=== PATIENT | female | born 1985 | race Caucasian/White ===

== ENCOUNTER 2017-03-07 11:13 | Inpatient (IN) | payer MEDICAID, OTHER ==
[~2017-03-07] VITALS: Ht 157.5 cm; Wt 69.1 kg
[2017-03-07 11:42] VITALS: Ht 157.5 cm; Wt 69.1 kg
[2017-03-07 11:43] VITALS: BP 115/60; PULSE 69
[2017-03-07] MEDS ORDERED: PRENAT PO (11:45)
[2017-03-07] MEDS ORDERED: METHYLERGONOVINE 0.2 MG INJ IM PRN (13:00)
[2017-03-07] MEDS ORDERED: TERBUTALINE 1 MG/ML INJ SC ONE (13:00)
[2017-03-07] MEDS ORDERED: OXYTOCIN 30 UNITS/LR 500 ML IV PRN (13:00)
[2017-03-07] MEDS ORDERED: LIDOCAINE 1% (MPF) 30 ML INJ INJ PRN (13:00)
[2017-03-07] MEDS ORDERED: CARBOPROST 250 MCG INJ IM PRN (13:00)
[2017-03-07] MEDS ORDERED: MISOPROSTOL 200 MCG TAB PR PRN (13:00)
[2017-03-07] MEDS ORDERED: BETAMET NA PHOS/AC(6 MG/ML) 5ML INJ IM ONE (13:00)
[2017-03-07] MEDS ORDERED: TERBUTALINE 1 ML ONE (13:29)
[2017-03-07 13:31] LABS: ADD UMIC NO; UR ASCORBIC ACID 20 mg/dL (NEGATIVE); UR BILIRUBIN (Dip) NEGATIVE (NEGATIVE); UR BLOOD (Dip) NEGATIVE (NEGATIVE); UR CLARITY SLIGHTLY CLOUDY (CLEAR); UR COLOR YELLOW (YELLOW); UR GLUCOSE (Dip) NEGATIVE (NEGATIVE); UR KETONES (Dip) TRACE mg/dL (NEGATIVE); UR LEUKOCYTE ESTERASE (Dip) NEGATIVE Leu/ul (NEGATIVE); UR NITRITE (Dip) NEGATIVE (NEGATIVE); UR RBC 1 /HPF (0-5); UR SPECIFIC GRAVITY (Dip) 1.012 (1.003-1.030); UR SQUAMOUS EPITHELIAL CELL FEW /HPF (FEW); UR TOTAL PROTEIN (Dip) NEGATIVE (NEGATIVE); UR UROBILINOGEN (Dip) NEGATIVE (NEGATIVE)
--- NOTE | 2017-03-07 13:47 | RADRPT ---
PROCEDURE: US OB. CLINICAL INDICATION: Size and dates , labor TECHNIQUE: Multiple sonographic images of the pelvis and gravid uterus were obtained. The images were reviewed on a PACS workstation. COMPARISON: No prior studies are available for comparison. FINDINGS: There is a single viable intrauterine gestation. Cardiac activity is present with 126 beats per min kam. There is a vertex presentation. The placenta is anterior. There is no evidence for an abruption or placenta previa. Measurements were made in order to determine age. The results are as follows: BPD =7.7 cm HC =29.3 cm AC =32.7 cm FL =6.4 cm Estimated gestational age of approximately 33 weeks and 2 days based on ultrasound measurements. Clinical age: 32 weeks and 5 days. The estimated date of delivery is 04/23/17, based on ultrasound measurements. The EFW = 2464 g, 91%, based on LMP age. RPTAT: AA IMPRESSION: Single viable intrauterine gestation of approximately 33 weeks and 2 days based on ultrasound measu rements. .Kip Torres MD, MD Date Time Electronically viewed and signed by .Kip Torres MD, on 03/07/2017 13:46 .S/
--- NOTE | 2017-03-07 13:48 | RADRPT ---
PROCEDURE: US OB biophysical profile. CLINICAL INDICATION: decreased movements, labor TECHNIQUE: Multiple sonographic images of the pelvis were obtained. The images were reviewed on a PACS workstation. COMPARISON: No prior studies are available for comparison. FINDINGS: There is a single viable intrauterine gestation. Cardiac activity is present with 137 beats per min mohegan. There is a vertex presentation. The placenta is anterior. There is no evidence of placental abruption. There is a normal amount of amniotic fluid with an REYNALDO = 11.7 cm. Biophysical profile: movement 2/2 tone 2/2. breathing 2/2 REYNALDO 2/2 Total 03/12 RPTAT: AA . IMPRESSION: Normal biophysical profile. . .Kip Torres MD, Date Time Electronically viewed and signed by .Kip Torres MD, MD on 03/07/2017 13:47 .S/
[2017-03-07] MEDS: LACTATED RINGER'S 1,000 ML IV SCH ×2 (13:50→16:09)
[2017-03-07 14:06] LABS: BASOPHILS % 0.3 % (0.0-2.0); EOSINOPHILS % 0.2 % (0.0-7.0); HEMATOCRIT 39.9 % (37.0-47.0); LYMPHOCYTES # 1.3 10^3/ul (0.8-2.9); LYMPHOCYTES % 10.5 % (15.0-51.0); MEAN CORPUSCULAR HEMOGLOBIN 30.1 pg (29.0-33.0); MEAN CORPUSCULAR HGB CONC 35.1 g/dl (32.0-37.0); MEAN CORPUSCULAR VOLUME 85.8 fl (82.0-101.0); MEAN PLATELET VOLUME 10.1 fl (7.4-10.4); MONOCYTE # 0.5 10^3/ul (0.3-0.9); MONOCYTES % 3.9 % (0.0-11.0); NEUTROPHIL # 10.5 10^3/ul (1.6-7.5); NEUTROPHILS % 84.8 % (39.0-77.0); PLATELET COUNT 266 10^3/UL (140-415); RED BLOOD COUNT 4.65 10^6/ul (4.20-5.40); RED CELL DISTRIBUTION WIDTH 12.8 % (11.5-14.5); WHITE BLOOD COUNT 12.3 10^3/ul (4.8-10.8)
[2017-03-07 15:19] LABS: INR 0.87; PROTIME 11.8 Sec (12.2-14.2); PT RATIO 0.9
[2017-03-07 15:20] LABS: PARTIAL THROMBOPLASTIN TIME 23.7 Sec (25.0-35.0)
[2017-03-07] MEDS ORDERED: MAGNESIUM SULFATE 20 GM/500 ML 500 ML IV SCH ×2 (15:22→21:02)
[2017-03-07] MEDS ORDERED: MAGNESIUM SULFATE 4 GM/100 ML 100 ML IV SCH (15:30)
[2017-03-07] MEDS ORDERED: CA GLUCONATE (GM) 10% 10ML INJ IV PRN (15:30)
[2017-03-07] MEDS ORDERED: ACETAMINOPHEN 325 MG TAB PO PRN (21:00)
[2017-03-08] MEDS: LACTATED RINGER'S 1,000 ML IV SCH ×2 (06:38→16:07)
[2017-03-08 07:19] LABS: ALBUMIN 3.3 g/dl (3.3-4.9); BILIRUBIN,INDIRECT 0.2 mg/dl (0-1.1); BILIRUBIN,TOTAL 0.2 mg/dl (0.2-1.3); CALCIUM 6.2 mg/dl (8.4-10.2); CREATININE 0.59 mg/dl (0.44-1.00); POTASSIUM 4.4 mmol/L (3.5-5.1); TOTAL PROTEIN 6.6 g/dl (6.1-8.1)
[2017-03-08] MEDS: PRENATAL VITAMIN PO SCH (09:30)
[2017-03-08] MEDS: DOCUSATE SODIUM 100 MG CAP PO SCH (09:30)
[2017-03-08] MEDS: MAGNESIUM SULFATE 20 GM/500 ML 500 ML IV SCH (12:16)
[2017-03-08 12:55] LABS: BARBITURATES Negative (NEGATIVE); BENZODIAZEPINES Negative (NEGATIVE); CANNABINOIDS Negative (NEGATIVE); COCAINE Negative (NEGATIVE); OPIATES Negative (NEGATIVE)
[2017-03-08] MEDS ORDERED: BETAMET NA PHOS/AC(6 MG/ML) 5ML INJ IM ONE (13:15)
--- NOTE | 2017-03-08 15:55 | QN ---
Documentation Comment I was asked to perform consultation for Jenny Wall who is an 31-year- old female with a corrected gestational age of 33-2/7 weeks. She was admitted to [facility] on 03/07 with onset of labor. She has been started on magnesium sulfate and is currently finishing up first course of betamethasone for augmentation of lung maturity. I spoke at length with mom regarding criteria for admission to NICU prior to and after 35 weeks of delivery. Discussed survival data for infants born at approximately 33 weeks. Discussed morbidities associated with delivery at this gestational age including but not limited to respiratory distress syndrome requiring prolonged ventilator use, chronic oxygen therapy, risk for sepsis and necrotizing enterocolitis. Discussed neurodevelopmental difficulties associated with delivery including higher rates of autism/ADHD/cerebral palsy as well as learning difficulties. Discussed benefits of breastmilk. Mom verbalized understanding of our discussion. Thank you for allowing me to participate in care of this infant. Should any further questions arise please do not hesitate to contact us FERNANDO AMARAL MD Mar 08, 2017 15:54
[2017-03-09] MEDS: LACTATED RINGER'S 1,000 ML IV SCH ×3 (02:07→21:24)
[2017-03-09] MEDS: MAGNESIUM SULFATE 20 GM/500 ML 500 ML IV SCH (07:39)
[2017-03-09] MEDS: PRENATAL VITAMIN PO SCH (08:48)
[2017-03-09] MEDS: DOCUSATE SODIUM 100 MG CAP PO SCH (08:48)
[2017-03-09] MEDS: NIFEdipine 10 MG CAP PO SCH ×3 (11:41→23:43)
--- NOTE | 2017-03-09 13:16 | RADRPT ---
PROCEDURE: US Limited OB. CLINICAL INDICATION: Estimated weight. TECHNIQUE: Multiple sonographic images of the pelvis were obtained. Transabdominal imaging only w as performed. COMPARISON: 03/07/2017. FINDINGS: Cardiac activity is present with 128 beats per minute. Presentation is vertex. Measurements were made in order to determine age. The results are as follows: BPD = 30 w 1 d HC = 31 w 4 d AC = 36 w 3 d FL = 32 w 4 d Estimated weight is 2376 g. The placenta is anterior, with no evidence of previa. IMPRESSION: 1. Single, live intrauterine with estimated age of 32 weeks, 5 days. 2. Estimated weight: 2376 g, 78%. 3. Anterior placenta without previa. RPTAT: EE .Lenny Zambrano MD, Date Time Electronically viewed and signed by .Lenny Zambrano MD, on 03/09/2017 13:21 .C/
--- NOTE | 2017-03-09 13:21 | RADRPT ---
PROCEDURE: OB ultrasound for biophysical profile. CLINICAL INDICATION: Biophysical profile. TECHNIQUE: Multiple sonographic images of the pelvis were obtained. Transabdominal view of the gr avid uterus are available for review. COMPARISON: None. FINDINGS: breathing movement = 2/2 tone = 2/2 motion = 2/2 REYNALDO = 10.7 cm Single live intrauterine with cardiac activity (140 beats per minute). Anterior placenta. IMPRESSION: 1. Single viable intrauterine gestation. 2. Biophysical profile = 8/8. 3. REYNALDO = 10.7 cm. RPTAT: EE .Lenny Zambrano MD, Date Time Electronically viewed and signed by .Lenny Zambrano MD, on 03/09/2017 13:26 .C/
--- NOTE | 2017-03-09 16:46 | OPPN ---
Date/Time of Note Date/Time of Note DATE: 03/09/17 TIME: 16:38 Event Note March 09, 2017 supervisor doping consult This patient is 31 years old 1 para 0 with estimated date of confinement of April 23, 2017 which makes her 33 weeks and 4 days. She came in 2 days ago due to premature contractions.. Was admitted in the hospital and placed on magnesium sulfate which was discontinued today betamethasone was given into different dose she is now placed on 20 mg of Procardia every 6 hours Laboratory Tests Test 03/08/17 18:00 03/09/17 00:43 Magnesium Level 5.4mg/dl 5.0mg/dl Current Medications Medications (Trade) Dose Ordered Sig/Domi Route PRN Reason Start Time Stop Time Status Last Admin Dose Admin Lactated Ringer's (Lr) 1,000 ml @ 100 mls/hr Q10H IV 03/07/17 13:00 03/09/17 12:17 Lidocaine 30 ml 30 ml ONCE PRN INJ EPISIOTOMY/TEARING 03/07/17 13:00 03/09/17 10:06 DC Oxytocin/Lactated Ringer's 500 ml @ 0 mls/hr ONCE PRN IV For Hemorrhage Management 03/07/17 13:00 03/09/17 10:06 DC Methylergonovine Maleate (Methergine) 0.2 mg ONCE PRN IM VAGINAL BLEEDING 03/07/17 13:00 03/09/17 10:06 DC Carboprost Tromethamine (Hemabate) 250 mcg ONCE PRN IM VAGINAL BLEEDING 03/07/17 13:00 03/09/17 10:06 DC Misoprostol (Cytotec) 1,000 mcg ONCE PRN AL VAGINAL BLEEDING 03/07/17 13:00 03/09/17 10:06 DC Terbutaline Sulfate (Brethine) 0.25 mg PRN ONCE SC 03/07/17 13:00 03/07/17 13:34 DC 03/07/17 13:53 Betamethasone Acet/Betameth SodPhos 12 mg 12 mg ONCE ONCE IM 03/07/17 13:00 03/07/17 13:34 DC 03/07/17 13:50 Terbutaline Sulfate 1 ml @ ud STK-MED ONCE .ROUTE 03/07/17 13:29 03/07/17 13:30 DC Magnesium Sulfate 100 ml @ 200 mls/hr ONCE IV 03/07/17 15:30 03/07/17 15:59 DC 03/07/17 15:51 Magnesium Sulfate (Magnesium Sulfate 20 Gm/500 ml) 500 ml @ 50 mls/hr Q10H IV 03/07/17 15:22 03/07/17 21:12 DC 03/07/17 16:35 Calcium Gluconate (Ca Gluc) 1 gm ONCE PRN IV FOR MAGNESIUM TOXICITY 03/07/17 15:30 Acetaminophen 650 mg 650 mg Q6H PRN PO PAIN AND OR ELEVATED TEMP 03/07/17 21:00 03/07/17 21:17 Magnesium Sulfate 500 ml @ 75 mls/hr Q6H40M IV 03/07/17 21:02 03/08/17 04:28 DC 03/07/17 00:40 Magnesium Sulfate (Magnesium Sulfate 20 Gm/500 ml) 500 ml @ 25 mls/hr Q20H IV 03/08/17 04:26 03/09/17 11:04 DC 03/09/17 07:39 Betamethasone Acet/Betameth SodPhos (Celestone Soluspan) 12 mg ONCE ONCE IM 03/08/17 13:15 03/08/17 13:16 DC 03/08/17 10:53 Prenat Multivit/ Cook/Iron/Folic Ac () 1 tab DAILY PO 03/08/17 09:00 03/09/17 08:48 Docusate Sodium (Colace) 100 mg DAILY PO 03/08/17 09:00 03/09/17 08:48 Nifedipine (Procardia) 20 mg Q6 PO 03/09/17 12:00 03/09/17 11:41 On examination today she is fairly comfortable with occasional contractions only. heart rate tracing is normal no, but she had some deceleration about 3 hours ago At this time tracing looks fine with good variability occasional acceleration no deceleration . . Abdomen is soft no contractions I explained her condition to her including possibility of premature labor and delivery and the complications associated with that. She understands all of those and will continue her treatment ERIKA DAVID MD Mar 09, 2017 16:46
[2017-03-10] MEDS: NIFEdipine 10 MG CAP PO SCH ×2 (05:55→12:21)
[2017-03-10] MEDS: LACTATED RINGER'S 1,000 ML IV SCH (07:46)
[2017-03-10] MEDS: PRENATAL VITAMIN PO SCH (09:02)
[2017-03-10] MEDS: DOCUSATE SODIUM 100 MG CAP PO SCH (09:02)
--- NOTE | 2017-03-11 04:47 | PN ---
DATE: 03/08/2017 TIME OF PROGRESS NOTE: 03/08/2017 at 9 a.m. SUBJECTIVE DATA: The patient feels good but still having contractions. The patient does not feel them. OBJECTIVE DATA: She is afebrile. Vital signs stable. Abdomen soft. No tenderness noted. No discharge noted. Extremities: No calf tenderness. ASSESSMENT AND PLAN: 33-2/7 weeks intrauterine with labor. Plan is to continue with IV medications. The plans were explained to the patient and she understood everything totally. Dictated By: Alisa Mathew MD /bridgette/martin /Document#: [id number] ; copy to [place] office
--- NOTE | 2017-03-11 04:47 | PREOPHP ---
DATE OF ADMISSION: 03/07/2017 HISTORY OF PRESENT ILLNESS: This is a 31-year-old lady, 1, expected date of confinement 04/23/2017, at 33-1/7 weeks, admitted with labor. She complains of lower abdominal pains and low back pains a few hours prior to admission. She had care a few times in my office and the care was uneventful. PAST MEDICAL HISTORY: No history of diabetes, tobacco or asthma. ALLERGIES: NO ALLERGIES. SOCIAL HISTORY: The patient does not smoke. She does not drink. She does not take any drugs. MEDICATIONS: Iron and vitamins. LICENSED APPRAISER HISTORY: She had menarche at age 13, every 28 days' interval, 3 to 4 days' duration, and moderate in amount. FAMILY HISTORY: Noncontributory. REVIEW OF SYSTEMS: CARDIOVASCULAR: No chest pain. RESPIRATORY: No cough. GASTROINTESTINAL: No diarrhea. No vomiting. GENITOURINARY: No dysuria. PHYSICAL EXAMINATION: GENERAL APPEARANCE: A conscious, coherent lady in no acute distress. VITAL SIGNS: Blood pressure 120/80. Pulse rate 80 per minute. Respirations 16 per minute. BREASTS: Within normal limits. HEART: Within normal limits. LUNGS: Within normal limits. ABDOMEN: Soft. No tenderness noted. Fundic height 33 cm. heart tones 140 per minute. PELVIC: On admission, the cervix is closed. EXTREMITIES: No pedal edema. ADMITTING DIAGNOSIS: 33-1/7 week intrauterine with labor. The patient had an OB ultrasound. She was started on IV hydration followed by two doses of subcu terbutaline. She still continues to have some contractions so she was started on magnesium sulfate. She was also given betamethasone. The plans were explained to the patient. She understood everything totally. The risks, benefits and alternatives were discussed with her as well. Dictated By: Alisa Mathew MD /bridgette/martin /Document#: [id number] ; copy to [place] office
--- NOTE | 2017-03-11 04:53 | PN ---
DATE: 03/09/2017 TIME OF PROGRESS NOTE: 03/09/2017 at 6 p.m. SUBJECTIVE DATA: The patient feels better. Mild irregular contractions. She does not have any complaint. OBJECTIVE DATA: She is afebrile. Vital signs stable. Abdomen soft. No tenderness noted. No vaginal discharge. Extremities: No calf tenderness. ASSESSMENT AND PLAN: 33-2/7 weeks intrauterine . Resolving labor. The patient will be observed in the hospital until Saturday per . recommendations. She will be put on Procardia. The plans were explained to the patient and she understood everything totally. Dictated By: Ailsa Mathew MD /bridgette/martin /Document#: [id number] ; [facility]
--- NOTE | 2017-03-11 04:53 | PN ---
DATE: 03/10/2017 TIME OF PROGRESS NOTE: 03/10/2017 at 1 p.m. SUBJECTIVE DATA: The patient feels good. No complaints. No contractions. The patient is discharged to go home. OBJECTIVE DATA: She is afebrile. Vital signs stable. Abdomen soft. No tenderness noted. heart tones normal. No vaginal discharge. Extremities: No calf tenderness. ASSESSMENT AND PLAN: 33-4/7 weeks intrauterine with resolved labor. Since the patient is not having any contractions, she is discharged to go home. She will be discharged on general diet and activity is restricted. She was counseled. She was to come to the clinic for her appointment. Dictated By: Alisa Mathew MD /bridgette/martin /Document#: [id number] ; [facility]
--- NOTE | 2017-03-11 05:37 | DS ---
DATE OF ADMISSION: 03/07/2017 DATE OF DISCHARGE: 03/10/2017 Discharge Summary REASON FOR ADMISSION: This is a 31-year-old lady, 1, SUSAN of 04/23/2017 at 33 1/7 weeks, admitted for IV hydration. She was admitted for pre-term labor. HISTORY OF PRESENT ILLNESS: See dictated History and Physical. ADMITTING DIAGNOSIS: A 33 1/7 weeks' intrauterine with pre-term labor. HOSPITAL COURSE: The patient received betamethasone and magnesium sulfate and the patient responded well. The magnesium sulfate was continued 24 hours after the last dose of betamethasone was given and the patient was feeling good. She was put on Procardia as well as . Magnesium sulfate was stopped and the patient was feeling good and no contractions. On March 10, the patient was feeling well and she decided to go home. FOLLOWUP: She was discharged home on a general diet and activity was restricted. She was told to keep her appointment in the clinic, and she was told to continue to take iron and vitamins at home and to come back to the hospital if there is any problem or concern. FINAL DIAGNOSIS: A 33 5/7 weeks' intrauterine with pre- term labor. Dictated By: Alisa Mathew MD /bridgette/edwardo /Document#: [id number] RO[facility]
== END 2017-03-10 14:55 | disposition home or self-care (01) | DRG 780 ==
LOC: OBT 11:13 → L-D 11:15 → OBT 13:04 → L-D 13:14 → OBG 03-09 09:34
PROVIDERS: ADMIT Obstetrics & Gynecology; ATTEND Obstetrics & Gynecology
DX: O47.03 False labor before 37 completed weeks of gestation, third trimester (principal); Z3A.33 33 weeks gestation of pregnancy
CPT/HCPCS: 76815; 76816; 76818; 80053; 80307; 81001; 81003; 83735; 85025; 85610; 85730; 86592; 86900; 86901; G0463; J0702; J3105; J3475; J7120

== ENCOUNTER 2017-03-18 11:51 | Inpatient (IN) | payer OTHER ==
[~2017-03-18] VITALS: Ht 157.5 cm; Wt 60.1 kg
[~2017-03-18 11:51] MED LIST: PRENAT PO
[2017-03-18 12:14] VITALS: Ht 157.5 cm; Wt 60.1 kg
[2017-03-18 12:15] VITALS: BP 116/73; PULSE 91
[2017-03-18] MEDS ORDERED: PRENAT PO (12:17)
[2017-03-18 12:34] LABS: ADD UMIC NO; UR ASCORBIC ACID NEGATIVE (NEGATIVE); UR BILIRUBIN (Dip) NEGATIVE (NEGATIVE); UR BLOOD (Dip) NEGATIVE (NEGATIVE); UR CLARITY CLEAR (CLEAR); UR COLOR YELLOW (YELLOW); UR GLUCOSE (Dip) NEGATIVE (NEGATIVE); UR KETONES (Dip) NEGATIVE (NEGATIVE); UR LEUKOCYTE ESTERASE (Dip) NEGATIVE Leu/ul (NEGATIVE); UR NITRITE (Dip) NEGATIVE (NEGATIVE); UR SPECIFIC GRAVITY (Dip) 1.012 (1.003-1.030); UR TOTAL PROTEIN (Dip) NEGATIVE (NEGATIVE); UR UROBILINOGEN (Dip) NEGATIVE (NEGATIVE)
[2017-03-18] MEDS ORDERED: TERBUTALINE 1 MG/ML INJ SC ONE (13:00)
[2017-03-18] MEDS: LACTATED RINGER'S 1,000 ML IV SCH ×3 (13:05→20:18)
[2017-03-18 13:28] LABS: BASOPHILS % 0.4 % (0.0-2.0); EOSINOPHILS # 0.1 10^3/ul (0.0-0.5); EOSINOPHILS % 0.5 % (0.0-7.0); HEMATOCRIT 39.4 % (37.0-47.0); HEMOGLOBIN 13.8 g/dl (12.0-16.0); LYMPHOCYTES % 18.6 % (15.0-51.0); MEAN CORPUSCULAR HEMOGLOBIN 29.6 pg (29.0-33.0); MEAN CORPUSCULAR VOLUME 84.5 fl (82.0-101.0); MEAN PLATELET VOLUME 10.3 fl (7.4-10.4); MONOCYTE # 0.7 10^3/ul (0.3-0.9); MONOCYTES % 6.6 % (0.0-11.0); NEUTROPHILS % 73.7 % (39.0-77.0); PLATELET COUNT 275 10^3/UL (140-415); RED BLOOD COUNT 4.66 10^6/ul (4.20-5.40); RED CELL DISTRIBUTION WIDTH 12.6 % (11.5-14.5); WHITE BLOOD COUNT 10.5 10^3/ul (4.8-10.8)
[2017-03-18 13:43] LABS: ALBUMIN 3.7 g/dl (3.3-4.9); ALBUMIN/GLOBULIN RATIO 1.05; BILIRUBIN,INDIRECT 0.2 mg/dl (0-1.1); BILIRUBIN,TOTAL 0.2 mg/dl (0.2-1.3); CALCIUM 8.7 mg/dl (8.4-10.2); CREATININE 0.59 mg/dl (0.44-1.00); POTASSIUM 3.8 mmol/L (3.5-5.1); TOTAL PROTEIN 7.2 g/dl (6.1-8.1)
--- NOTE | 2017-03-18 13:53 | RADRPT ---
PROCEDURE: Obstetrical ultrasound for biophysical profile CLINICAL INDICATION: Biophysical profile. . TECHNIQUE: Obstetrical ultrasound of the uterus for biophysical profile. Transabdominal views are obtained. COMPARISON: 03/09/2017 FINDINGS: Single intrauterine gestation. Presentation: Cephalic. Placenta: Anterior. No evidence of placental abruption. No evidence of placenta previa. breathing movement = 2/2 tone = 2/2 motion = 2/2 REYNALDO = 2/2 REYNALDO = 10.8 cm heart rate: 138 beats per minute IMPRESSION: Single intrauterine gestation. Biophysical profile 03/12 RPTAT: AADD .Osvaldo Mcfarlane MD, MD Date Time Electronically viewed and signed by .Osvaldo Mcfarlane MD, on 03/18/2017 13:52 .B/
--- NOTE | 2017-03-18 14:24 | RADRPT ---
PROCEDURE: US OB AND ULTRASOUND CERVIX. CLINICAL INDICATION: Size and dates , PTL TECHNIQUE: Multiple sonographic images of the pelvis and gravid uterus were obtained. The images were reviewed on a PACS workstation. Transvaginal images of the cervix were also obtained. COMPARISON: 03/09/17 FINDINGS: The cervix has a length of 2.3 cm. The cervix is dilated to 0.6 cm. There is a single viable intrauterine gestation. Cardiac activity is present with 137 beats per min [facility]. There is a vertex presentation. The placenta is anterior. There is no evidence for an abruption or placenta previa. There is a normal amount of amniotic fluid with an REYNALDO = 10.8 cm. Measurements were made in order to determine age. The results are as follows: BPD =7.8 cm HC =29.5 cm AC =33.5 cm FL =6.8 cm Estimated gestational age of approximately 34 weeks and 0 days based on ultrasound measurements. Clinical age: 34 weeks and 6 days. The estimated date of delivery is 04/29/17, based on ultrasound measurements. The EFW = 2685 g, 64.5%, based on LMP age. RPTAT: AA IMPRESSION: Single viable intrauterine gestation of approximately 34 weeks and 0 days based on ultrasound measu rements. Cervix is short and measures 2.3 cm in length. Cervix is dilated to 0.6 cm. .Kip Torres MD, MD Date Time Electronically viewed and signed by .Kip Torres MD, MD on 03/18/2017 14:24 .S/
[2017-03-18 14:58] LABS: INR 0.91; PROTIME 12.3 Sec (12.2-14.2)
[2017-03-18 14:59] LABS: PARTIAL THROMBOPLASTIN TIME 23.6 Sec (25.0-35.0)
[2017-03-18] MEDS ORDERED: OXYTOCIN 30 UNITS/LR 500 ML IV PRN (15:00)
[2017-03-18] MEDS ORDERED: OXYTOCIN 30 UNITS/LR 500 ML IV SCH ×3 (15:00→17:00)
[2017-03-18] MEDS ORDERED: METHYLERGONOVINE 0.2 MG INJ IM PRN (15:00)
[2017-03-18] MEDS ORDERED: BUTORPHANOL 2 MG INJ IV PRN ×2 (15:00)
[2017-03-18] MEDS ORDERED: LIDOCAINE 1% (MPF) 30 ML INJ INJ PRN (15:00)
[2017-03-18] MEDS ORDERED: CARBOPROST 250 MCG INJ IM PRN (15:00)
[2017-03-18] MEDS ORDERED: MISOPROSTOL 200 MCG TAB PR PRN (15:00)
[2017-03-18] MEDS ORDERED: LACTATED RINGER'S 1,000 ML IV PRN (15:00)
[2017-03-18] MEDS ORDERED: CLINDAMYCIN 900 MG/D5W (PMX) 50 ML IVPB ONE (16:45)
[2017-03-18] MEDS: CLINDAMYCIN 900 MG/D5W (PMX) 50 ML IV SCH (16:50)
[2017-03-18] MEDS ORDERED: FENTAnyl 2MCG/ML-ROPIV 0.2% 100 ML ONE (21:56)
[2017-03-18] MEDS ORDERED: FENTAnyl 2MCG/ML-ROPIV 0.2% 100 ML BAG EPI SCH (22:30)
[2017-03-18] MEDS ORDERED: DIPHENHYDRAMINE 50 MG INJ IV PRN (22:30)
[2017-03-18] MEDS ORDERED: NALOXONE (0.4 MG/ML) INJ IV PRN (22:30)
[2017-03-18] MEDS ORDERED: ONDANSETRON 4 MG INJ IV PRN (22:30)
[2017-03-18] MEDS ORDERED: DEXTROSE 5%-LR 1,000 ML IV SCH (23:00)
[2017-03-19] MEDS: CLINDAMYCIN 900 MG/D5W (PMX) 50 ML IV SCH ×2 (01:52→09:24)
[2017-03-19] MEDS: LACTATED RINGER'S 1,000 ML IV SCH (06:22)
[2017-03-19] MEDS ORDERED: CLINDAMYCIN 900 MG/D5W (PMX) 50 ML IVPB SCH (07:30)
[2017-03-19 10:58] LABS: Arterial Cord Blood pCO2 64.2 mmHG (25-50); CBA Base Excess -8.8 mmol/L; Fraction OxyHgb Cord Arterial 7.4 %; MODE ROOM AIR; MetHgb Cord Arterial 1.9 %
[2017-03-19 11:01] LABS: CBV Base Excess -4.3 mmol/L; CBV COHb 0.8 %; CBV Total Hemglobin 17.7 g/dl; Cord Blood Venous AADO2 69.4 mmHg; Cord Blood Venous pO2 17.5 mmHG (15.0-45.0); Fraction OxyHgb Cord Venous 34.2 %; MODE ROOM AIR; MetHgb Cord Venous 1.4 %; Sample Type CBV
[2017-03-19] MEDS ORDERED: IBUPROFEN 600 MG TAB PO STA (12:12)
[2017-03-19] MEDS ORDERED: OXYCODONE/ASPIRIN (4.88/325) TAB PO STA (12:43)
[2017-03-19] MEDS: OXYTOCIN 30 UNITS/LR 500 ML IV SCH ×2 (13:08→16:50)
[2017-03-19] MEDS: LACTATED RINGER'S 1,000 ML IV* SCH ×2 (13:08→21:08)
[2017-03-19] MEDS ORDERED: METHYLERGONOVINE 0.2 MG INJ IM PRN (13:30)
[2017-03-19] MEDS ORDERED: DIPHENHYDRAMINE 25 MG CAP PO PRN (13:30)
[2017-03-19] MEDS ORDERED: ACETAMINOPHEN 325 MG TAB PO PRN ×2 (13:30)
[2017-03-19] MEDS ORDERED: NA PHOSPHATE/BIPHOS 133 ML ENEMA PR PRN (13:30)
[2017-03-19] MEDS ORDERED: ZOLPIDEM 5 MG TAB PO PRN (13:30)
[2017-03-19] MEDS ORDERED: BENZOCAINE 20% 56 ML SPRAY TOP PRN (13:30)
[2017-03-19] MEDS ORDERED: CARBOPROST 250 MCG INJ IM PRN (13:30)
[2017-03-19] MEDS ORDERED: CEFAZOLIN 1 GM/50 ML (PMX) 50 ML IV ONE (13:30)
[2017-03-19] MEDS ORDERED: METHYLERGONOVINE 0.2 MG TAB PO PRN (13:30)
[2017-03-19] MEDS ORDERED: HYDROCODONE/APAP (5/325) TAB PO PRN (13:30)
[2017-03-19] MEDS ORDERED: OXYTOCIN 30 UNITS/LR 500 ML IV PRN (13:30)
[2017-03-19] MEDS ORDERED: WITCH HAZEL/GLYCERIN PAD PR PRN (13:30)
[2017-03-19] MEDS ORDERED: ONDANSETRON 4 MG INJ IV PRN (13:30)
[2017-03-19] MEDS ORDERED: MAGNESIUM HYDROXIDE 30ML CUP PO PRN (13:30)
[2017-03-19] MEDS ORDERED: MISOPROSTOL 200 MCG TAB PR PRN (13:30)
[2017-03-19] MEDS ORDERED: LANOLIN 7 GM TUBE TOP PRN (13:30)
[2017-03-19 13:40] VITALS: BP 107/71; PULSE 73; RESP 16
[2017-03-19 16:00] VITALS: BP 108/69; PULSE 70; RESP 17
[2017-03-19] MEDS ORDERED: AMPICILLIN 2 GM/NS (PMX) 100 ML IV SCH (18:00)
[2017-03-19] MEDS: IBUPROFEN 600 MG TAB PO SCH ×2 (18:13→23:32)
[2017-03-19 19:40] VITALS: BP 100/66; PULSE 85; RESP 20
[2017-03-19] MEDS: SENNA/DOCUSATE NA (8.6MG/50MG) TAB PO SCH (21:31)
[2017-03-20 04:15] VITALS: BP 100/60; PULSE 70; RESP 20
[2017-03-20] MEDS: IBUPROFEN 600 MG TAB PO SCH ×3 (05:41→17:41)
--- NOTE | 2017-03-20 06:12 | PREOPHP ---
DATE OF ADMISSION: 03/18/2017 HISTORY OF PRESENT ILLNESS: This is a 31-year-old, 1, EDC April 23, 2017, at 34 and 6/7 weeks, admitted to labor and delivery area because of leaking bag of water that started at 9 a.m. on March 18, 2017. This was done and this was followed by mild irregular contractions. She had care in my [facility] office and the care was uneventful. SOCIAL HISTORY: No history of diabetes, TB, asthma. No allergies. Patient does not smoke. She does not drink. She does not take any drugs except her iron and vitamins. GYNECOLOGICAL HISTORY: She had menarche at the age of 13, every 28 days interval, 3-4 days' duration and moderate in amount. FAMILY HISTORY: Noncontributory. REVIEW OF SYSTEMS: CARDIOVASCULAR: No chest pain. LUNGS: No cough. GASTROINTESTINAL: No diarrhea, no vomiting. GENITOURINARY: No dysuria. PHYSICAL EXAMINATION: GENERAL APPEARANCE: Reveals a conscious, coherent lady, in no acute distress. VITAL SIGNS: Her blood pressure 120/80, pulse rate 80 per minute, respirations 16 per minute. BREASTS, HEART AND LUNGS: Within normal limits. ABDOMEN: Soft. Fundic height 35 cm. heart tones 140 per minute. PELVIC: Exam on admission revealed the cervix to be 2 cm dilated, 100 percent effaced, station -1, in cephalic presentation with the bag of water leaking. Nitrazine test was positive. EXTREMITIES: No pedal edema. ADMITTING DIAGNOSES: 34 and 6/7 weeks' intrauterine in early labor. She had premature rupture of membranes. The patient was planned to be given Pitocin augmentation. She received clindamycin as she was allergic to penicillin. The plans were explained to the patient and she understood everything totally. The risks, benefits, and alternatives were discussed with her as well. At 2148, she received labor epidural and anesthesia was given. She was having variable D cells. So she was given amnioinfusion and the Pitocin was stopped and the patient was observed closely and she went into complete dilatation and epidural was stopped. Dictated By: Alisa Mathew MD /bridgette/sal /Document#: [id number] CC: Alisa Mathew MD;*[facility]*
--- NOTE | 2017-03-20 06:20 | OPR ---
DATE OF OPERATION: 03/19/2017 HISTORY OF THE PRESENT ILLNESS: See dictated history and physical. PHYSICAL EXAMINATION: See dictated history and physical. OPERATIVE PROCEDURE: The patient was given Pitocin augmentation. She was given amnioinfusion and she was given labor epidural and after she was completely dilated, the epidural was stopped and when the patient was feeling the pressure, she was coached to push, and patient was pushing very well. When she was , there was a prolonged deceleration and the patient could not push in spite of midline episiotomy. So the vacuum was applied once up to 3 seconds, delivered a healthy baby boy, Apgars 9, 9, at 10:34 a.m., over midline episiotomy, weighing 6 pounds 5 ounces. The placenta was delivered spontaneously and complete. Manual exploration of the uterus revealed no membranes left behind. The cervix, vagina and vulva were free of hematoma. The position was direct occiput posterior. There were 3 vessels in the cord. The placenta was normal. There was on the side and on maternal side. Cord segment was obtained for blood gases. Cord blood was obtained. Placental culture was obtained and the placenta was sent to Pathology. The episiotomy was repaired in layers using 2-0 chromic with a labor epidural local 1 percent Xylocaine. Dictated By: Alisa Mathew MD /bridgette/sal /Document#: [id number]
[2017-03-20 07:50] VITALS: BP 89/53; PULSE 77; RESP 16
[2017-03-20] MEDS: SENNA/DOCUSATE NA (8.6MG/50MG) TAB PO SCH ×2 (08:50→21:06)
[2017-03-20 10:13] LABS: BASOPHILS % 0.2 % (0.0-2.0); EOSINOPHILS % 0.2 % (0.0-7.0); HEMATOCRIT 37.3 % (37.0-47.0); HEMOGLOBIN 12.2 g/dl (12.0-16.0); LYMPHOCYTES # 2.2 10^3/ul (0.8-2.9); LYMPHOCYTES % 10.4 % (15.0-51.0); MEAN CORPUSCULAR HEMOGLOBIN 28.8 pg (29.0-33.0); MEAN CORPUSCULAR HGB CONC 32.7 g/dl (32.0-37.0); MEAN PLATELET VOLUME 10.4 fl (7.4-10.4); MONOCYTE # 0.9 10^3/ul (0.3-0.9); MONOCYTES % 4.2 % (0.0-11.0); NEUTROPHILS % 84.5 % (39.0-77.0); PLATELET COUNT 269 10^3/UL (140-415); RED BLOOD COUNT 4.24 10^6/ul (4.20-5.40); RED CELL DISTRIBUTION WIDTH 13.4 % (11.5-14.5); WHITE BLOOD COUNT 21.3 10^3/ul (4.8-10.8)
[2017-03-20 16:00] VITALS: BP 110/66; PULSE 73; RESP 17
[2017-03-20 20:00] VITALS: BP 103/59; PULSE 74; RESP 18
[2017-03-21] MEDS: IBUPROFEN 600 MG TAB PO SCH ×4 (00:29→17:56)
[2017-03-21 04:00] VITALS: BP 98/55; PULSE 71; RESP 18
[2017-03-21 08:00] VITALS: BP 109/76; PULSE 70; RESP 18
[2017-03-21] MEDS ORDERED: VARICELLA VACCINE LIVE/PF 1,350 UNIT/0.5 ML ML SC* ONE (09:00)
[2017-03-21] MEDS ORDERED: MEASLES,MUMPS,RUBELLA VACCINE INJ SC* ONE (09:00)
[2017-03-21] MEDS ORDERED: DIPHTH/TET/ACEL PERTUSS (ADULT) 0.5 ML VIAL IM* ONE (09:00)
[2017-03-21] MEDS: SENNA/DOCUSATE NA (8.6MG/50MG) TAB PO SCH (09:03)
[2017-03-21 10:00] LABS: BASOPHILS % 0.2 % (0.0-2.0); EOSINOPHILS # 0.1 10^3/ul (0.0-0.5); EOSINOPHILS % 0.8 % (0.0-7.0); HEMATOCRIT 35.1 % (37.0-47.0); HEMOGLOBIN 11.6 g/dl (12.0-16.0); LYMPHOCYTES # 1.8 10^3/ul (0.8-2.9); LYMPHOCYTES % 13.4 % (15.0-51.0); MEAN CORPUSCULAR HEMOGLOBIN 28.9 pg (29.0-33.0); MEAN CORPUSCULAR VOLUME 87.3 fl (82.0-101.0); MEAN PLATELET VOLUME 10.1 fl (7.4-10.4); MONOCYTE # 0.5 10^3/ul (0.3-0.9); MONOCYTES % 3.7 % (0.0-11.0); NEUTROPHILS % 81.4 % (39.0-77.0); PLATELET COUNT 262 10^3/UL (140-415); RED BLOOD COUNT 4.02 10^6/ul (4.20-5.40); RED CELL DISTRIBUTION WIDTH 13.2 % (11.5-14.5); WHITE BLOOD COUNT 13.3 10^3/ul (4.8-10.8)
[2017-03-21 16:27] VITALS: BP 119/73; PULSE 76; RESP 18
== END 2017-03-21 18:20 | disposition home or self-care (01) | DRG 775 ==
LOC: OBT 11:51 → L-D 11:52 → OBT 14:40 → L-D 03-19 07:17 → PP1 03-19 13:23
PROVIDERS: ADMIT Obstetrics & Gynecology; ATTEND Obstetrics & Gynecology
PROC: 10D07Z6 Extraction of Products of Conception, Vacuum, Via Natural or Artificial Opening (ICD-10-PCS; principal; 2017-03-19)
PROC: 0W8NXZZ Division of Female Perineum, External Approach (ICD-10-PCS; 2017-03-19)
PROC: 3E033VJ Introduction of Other Hormone into Peripheral Vein, Percutaneous Approach (ICD-10-PCS; 2017-03-19)
DX: O60.14X0 Preterm labor third trimester with preterm delivery third trimester, not applicable or unspecified (principal); Z37.0 Single live birth; Z3A.34 34 weeks gestation of pregnancy
CPT/HCPCS: 36415; 36600; 62319; 76815; 76817; 76818; 80053; 81003; 82803; 84112; 85025; 85610; 85730; 86592; 86900; 86901; 87070; 87075; 87086; 90715; 90716; 96360; 96361; 96372; 99464; G0463; J0595; J2590; J3010; J3105; J7120; J7121